=== PATIENT | male | born 1960 ===

== ENCOUNTER 2019-07-22 15:39 | Emergency (ER) | payer BC ==
[~2019-07-22] VITALS: Ht 177.8 cm; Wt 96.6 kg
[2019-07-22] MEDS ORDERED: VITAMIN D21250 MCG PO (15:51)
[2019-07-22] MEDS ORDERED: CLONIDINE HCL0.1 MG PO (15:51)
[2019-07-22] MEDS ORDERED: AMLODIPINE BESYL5 MG PO (15:51)
[2019-07-22] MEDS ORDERED: CARVEDILOL3.125 MG PO (15:52)
[2019-07-22] MEDS ORDERED: ATORVASTATIN CA80 MG PO (15:52)
[2019-07-22] MEDS ORDERED: CLOPIDOGREL75 MG PO (15:52)
--- NOTE | 2019-07-23 17:11 | EKG ---
[facility] [address] [facility] [place] [address] Signed Sinus rhythm with occasional premature ventricular complexes Right bundle branch block Inferior infarct , age undetermined Abnormal ECG No previous ECGs available Confirmed by RIKI FRANKLIN MD ([id number] on 07/23/2019 5:10:59 PM Electronically Signed By: RIKI FRANKLIN MD 07/23/19 1711 PATIENT NAME: CHRISS AGUILERA MARY KAY Electrocardiogram DATE OF : 64 PHYSICIAN: RIKI FRANKLIN MD REPORT #: [id number] REPORT IS CONFIDENTIAL AND NOT TO BE RELEASED WITHOUT AUTHORIZATION
== END 2019-07-22 19:03 | disposition home or self-care (01) ==
LOC: ED 15:39
DX: M54.12 Radiculopathy, cervical region (principal); R07.9 Chest pain, unspecified; I25.2 Old myocardial infarction; F17.200 Nicotine dependence, unspecified, uncomplicated; Z88.0 Allergy status to penicillin; Z88.2 Allergy status to sulfonamides; Z79.899 Other long term (current) drug therapy
CPT/HCPCS: 70450; 71045; 71260; 80048; 83735; 84484; 85025; 85610; 85730; 93005; 93010; 99285-25; Q9967